=== PATIENT | male | born 1965 | race Caucasian/White ===

== ENCOUNTER 2021-10-03 09:32 | Outpatient (CLI) | payer BC ==
[2021-10-03] MEDS ORDERED: Magnevist 469MG/ML 20 ML VIAL ONE (16:10)
== END 2021-10-03 09:33 | disposition home or self-care (01) ==
LOC: TBSIIMAG 09:32
PROVIDERS: ATTEND Neurological Surgery
DX: M47.22 Other spondylosis with radiculopathy, cervical region (principal); Z98.1 Arthrodesis status; Z98.890 Other specified postprocedural states
CPT/HCPCS: 72156; A9579

== ENCOUNTER 2021-11-29 16:00 | Inpatient (IN) | payer BC ==
[2021-12-02 15:48] VITALS: BMI 28.8
[2021-12-04] MEDS ORDERED: fentaNYL Citrate/PF 100 MCG/2 ML SYRINGE ONE ×2 (06:44→08:54)
[2021-12-04] MEDS ORDERED: Midazolam HCl 2 mg/2 ml Vial ONE (07:36)
[2021-12-04] MEDS ORDERED: CEFAZOLIN 2 GM VIAL ONE ×2 (07:49→11:59)
[2021-12-04] MEDS ORDERED: Sodium Chloride 0.9% 100 ML ONE ×2 (07:49→11:59)
[2021-12-04] MEDS ORDERED: Famotidine/PF 20 mg/2ml Vial ONE (08:13)
[2021-12-04] MEDS ORDERED: PROPOFOL 200 MG/20 ML VIAL ONE (08:18)
[2021-12-04] MEDS ORDERED: ePHEDrine 50 MG/ML VIAL ONE (08:18)
[2021-12-04] MEDS ORDERED: NEOSTIGMINE 3 MG/3 ML SYR 3 MG/3 ML SYRINGE ONE (08:18)
[2021-12-04] MEDS ORDERED: Ondansetron PF 4 MG/2 ML Vial ONE (08:18)
[2021-12-04] MEDS ORDERED: Lidocaine 1% MPF 2 ML VIAL ONE (08:18)
[2021-12-04] MEDS ORDERED: Glycopyrrolate 0.2 MG/ML 5 ML SYRINGE ONE (08:18)
[2021-12-04] MEDS ORDERED: Dexamethasone 20 MG/5 ML VIAL ONE (08:18)
[2021-12-04] MEDS ORDERED: Rocuronium Bromide 10 MG/ML (10ML VIAL) ONE (08:18)
[2021-12-04] MEDS ORDERED: Tamsulosin HCl 0.4 MG CAP ONE (10:17)
== END 2021-12-04 12:50 | disposition home or self-care (01) | DRG 30 ==
LOC: SURG A 12-04 06:04
PROVIDERS: ADMIT Neurological Surgery; ATTEND Neurological Surgery
PROC: 0RG10A0 Fusion of Cervical Vertebral Joint with Interbody Fusion Device, Anterior Approach, Anterior Column, Open Approach (ICD-10-PCS; principal; 2021-12-04)
PROC: 0RB30ZZ Excision of Cervical Vertebral Disc, Open Approach (ICD-10-PCS; 2021-12-04)
PROC: 0PP30JZ Removal of Synthetic Substitute from Cervical Vertebra, Open Approach (ICD-10-PCS; 2021-12-04)
DX: M54.12 Radiculopathy, cervical region (principal); Z20.822 Contact with and (suspected) exposure to COVID-19; G89.4 Chronic pain syndrome; E78.5 Hyperlipidemia, unspecified; Z90.09 Acquired absence of other part of head and neck; Z90.49 Acquired absence of other specified parts of digestive tract; Z79.899 Other long term (current) drug therapy
CPT/HCPCS: 76000; C1713; J0690; J1100; J2250; J2405; J2704; J3490; S0028